=== PATIENT | male | born 1965 | race Two or more races ===

== ENCOUNTER 2016-10-07 13:28 | Emergency (ER) | payer OTHER ==
[2016-10-07 13:47] VITALS: BP 152/91; PULSE 84; RESP 18; TEMP 98.6; O2SAT 96
--- NOTE | 2016-10-07 14:28 | UCPHY ---
H & P Patient Type: New Chief Complaint Nursing Narrative: episodes of dizziness when going from sitting or lying to standing since yesterday; 1 episode without new activity Time Seen by Provider: 10/07/16 13:58 HPI/ROS: Chief complaint: Dizziness HPI: Patient has been experiencing episodes of dizziness when he turns his head for the last 2 days. No nausea or vomiting. Feels like the room is somewhat spinning but also getting somewhat lightheaded. Symptoms resolve after a few minutes. No fevers or chills. No headache. No congestion runny nose. No recent ill contacts. No head injuries. No numbness or tingling. No hearing or vision changes. Symptoms occur when he looks either direction, has not identified which direction causes worse symptoms. Does not have a history of the same. ROS: 10 point Review of Systems is negative except as noted in the HPI. Physical exam: Gen: Awake, Alert, No Distress HEENT: Ears: Bilateral TMs are normal, no erythema or bulging. External auditory canals are clear. Nose: no rhinorrhea Eyes: PERRLA, EOMI, he has nystagmus with bilateral horizontal gaze, fast component is to the right Mouth: Moist mucosa Neck: Supple, no JVD Chest: nontender, lungs clear to auscultation Heart: S1, S2 normal, no murmur Abd: Soft, non-tender, no guarding Back: no CVA tenderness, no midline tenderness Ext: no edema, non-tender Skin: no rash Neuro: CN II-XII intact, Sensation grossly intact, Strength 5/5 in bilateral upper and lower extremities, normal finger to nose, normal [id number], negative Romberg - Personal History Current Tetanus/Diphtheria Vaccine: Yes - Medical/Surgical History Other PMH: HTN. Sleep Apnea. Hemachromatosis. reflux - Family History Significant Family History: No pertinent family hx - Social History Smoking Status: Never smoked Constitutional: Initial Vital Signs Temperature (C) 37 C 10/07/16 13:44 Heart Rate 84 10/07/16 13:44 Respiratory Rate 18 10/07/16 13:44 Blood Pressure 152/91 H 10/07/16 13:44 O2 Sat (%) 96 10/07/16 13:44 O2 Delivery Mode Room Air Allergies/Adverse Reactions: No Known Allergies Allergy (Unverified 10/07/16 13:44) Home Medications: Medication Instructions Recorded Lisinopril 10/07/16 Meclizine HCl [Meclizine HCl 25 mg 25 mg PO BID PRN #20 tab 10/07/16 (RX,OTC)] Pantoprazole Sodium 10/07/16 Medical Decision Making Procedures: Patient has a positive Redford-Hallpike right greater than left. Kalin maneuver performed by me moderate reduction in symptoms. Patient presenting with symptoms consistent with benign positional vertigo. He has had moderate relief with Kalin maneuver. Will discharge on meclizine instructions follow up with his primary care physician in 5-7 days for re- evaluation. Departure - Departure Disposition: Home, Routine, Self-Care Clinical Impression: Benign paroxysmal positional vertigo Condition: Good Instructions: Benign Paroxysmal Positional Vertigo (ED) Additional Instructions: You may take meclizine for your dizziness symptoms. Follow up with primary care doctor in about a week for re-evaluation. Return Urgent Care for worsening dizziness, nausea, vomiting, headache, fevers, chills, or any other concerns. Prescriptions: Meclizine HCl [Meclizine HCl 25 mg (RX,OTC)] 25 mg PO BID PRN #20 tab PRN Reason: Dizziness - PQRS PQRS Measurement: NA
== END 2016-10-07 14:44 | disposition home or self-care (01) ==
LOC: CED 13:28
DX: H81.10 Benign paroxysmal vertigo, unspecified ear (principal); I10 Essential (primary) hypertension
CPT/HCPCS: 99204-PO; G0463-PO